=== PATIENT | female | born 1970 | race African-American/Black ===

== ENCOUNTER 2016-09-26 18:24 | Emergency (ER) | payer SELFPAY ==
[2016-09-26] MEDS ORDERED: Diazepam 5 MG TAB ONE (18:58)
[2016-09-26 19:10] LABS: #Eosinphils 0.2 thou/uL (0.0-0.7); #Lymphocytes 1.7 thou/uL (1.20-3.40); #Monocytes 0.4 thou/uL (0.11-0.59); #Neutrophils 1.8 thou/uL (1.40-6.50); %Basophils 1.2 % (0.0-1.0); %Eosinophils 5.5 % (0.0-10.0); %Lymphocytes 41.3 % (21.0-51.0); Hematocrit 28.5 % (36.0-47.0); Mean Platelet Volume 4.5 fL (7.4-10.4); Red Blood Cell (RBC) Count 3.86 mill/uL (4.20-5.40); White Blood Cell (WBC) Count 4.1 thou/uL (4.8-10.8)
[2016-09-26 19:19] LABS: ALT (SGPT) 9 U/L (0-55); AST (SGOT) 12 U/L (5-34); Alkaline Phosphatase 78 U/L (40-150); Anion Gap 13 mmol/L (10-20); BUN (Urea Nitrogen) 10 mg/dL (7.0-18.7); Bilirubin, Total 0.2 mg/dL (0.2-1.2); Calc. Creatinine Clearance 0 mL/min (70-130); Calcium 8.5 mg/dL (7.8-10.44); Carbon Dioxide 23 mmol/L (22-29); Chloride 110 mmol/L (98-107); Estimated GFR-MDRD 77; Globulin 3.2 g/dL (2.4-3.5); Protein, Total 6.8 g/dL (6.0-8.3)
[2016-09-26 19:24] LABS: Troponin I Less than 0.010 ng/mL (< 0.028)
[2016-09-26 19:27] LABS: Methamphetamine Not Detected (NotDetected)
[2016-09-26 19:28] LABS: Methadone Not Detected (NotDetected)
== END 2016-09-26 19:48 | disposition home or self-care (01) ==
LOC: NAV ERS 18:24
DX: F41.9 Anxiety disorder, unspecified (principal); F19.10 Other psychoactive substance abuse, uncomplicated; D64.9 Anemia, unspecified; F17.210 Nicotine dependence, cigarettes, uncomplicated
CPT/HCPCS: 80053; 80306; 82553; 84484; 85025; 93005

== ENCOUNTER 2016-10-19 01:42 | Emergency (ER) | payer SELFPAY ==
[2016-10-19 02:20] LABS: Acetaminophen Less than 3.0 mcg/mL (10.0-30.0); Salicylate Less than 5.0 mg/dL (15.0-30.0)
[2016-10-19 02:22] LABS: ALT (SGPT) 11 U/L (0-55); AST (SGOT) 15 U/L (5-34); Alkaline Phosphatase 75 U/L (40-150); Anion Gap 14 mmol/L (10-20); BUN (Urea Nitrogen) 19 mg/dL (7.0-18.7); Bilirubin, Total 0.2 mg/dL (0.2-1.2); Calc. Creatinine Clearance 0 mL/min (70-130); Calcium 8.6 mg/dL (7.8-10.44); Carbon Dioxide 21 mmol/L (22-29); Chloride 108 mmol/L (98-107); Estimated GFR-MDRD 86; Globulin 3.4 g/dL (2.4-3.5)
[2016-10-19] MEDS ORDERED: Sodium Chloride 0.9% 1,000 ML ONE (02:22)
[2016-10-19 02:31] LABS: #Basophils 0.2 thou/uL (0.0-0.2); #Eosinphils 0.1 thou/uL (0.0-0.7); #Lymphocytes 1.3 thou/uL (1.20-3.40); #Monocytes 0.8 thou/uL (0.11-0.59); #Neutrophils 5.8 thou/uL (1.40-6.50); %Basophils 2.3 % (0.0-1.0); %Eosinophils 1.4 % (0.0-10.0); %Lymphocytes 15.8 % (21.0-51.0); Hematocrit 24.4 % (36.0-47.0); Hypochromia MODERATE=16-30 cells (100X) (0-5/hpf); Mean Platelet Volume 4.7 fL (7.4-10.4); Microcytosis MARKED = >30 cells (100X) (0-5/hpf); Ovalocytes SLIGHT = 2-5 cells (100X) (0-1/hpf); Red Blood Cell (RBC) Count 3.44 mill/uL (4.20-5.40); White Blood Cell (WBC) Count 8.3 thou/uL (4.8-10.8)
[2016-10-19 02:33] LABS: Methadone Not Detected (NotDetected); Methamphetamine Not Detected (NotDetected)
[2016-10-19 03:08] LABS: Troponin I 0.011 ng/mL (< 0.028)
== END 2016-10-19 05:04 | disposition home or self-care (01) ==
LOC: NAV ERS 01:42
DX: F14.10 Cocaine abuse, uncomplicated (principal); F41.9 Anxiety disorder, unspecified; D50.9 Iron deficiency anemia, unspecified; F17.210 Nicotine dependence, cigarettes, uncomplicated
CPT/HCPCS: 51701; 80053; 80306; 80307; 81025; 82553; 84443; 84484; 85025; 93005; 96360; A4353; J7050

== ENCOUNTER 2016-11-13 22:01 | Emergency (ER) | payer SELFPAY ==
[2016-11-13] MEDS ORDERED: Dexamethasone 4 mg/ml Vial ONE (22:25)
== END 2016-11-13 23:01 | disposition home or self-care (01) ==
LOC: NAV ERS 22:01
DX: J02.9 Acute pharyngitis, unspecified (principal); F41.9 Anxiety disorder, unspecified; F17.210 Nicotine dependence, cigarettes, uncomplicated
CPT/HCPCS: 87081; 87430; 93005; 96372; J1100

== ENCOUNTER 2016-11-16 20:42 | Emergency (ER) | payer SELFPAY ==
[2016-11-16] MEDS ORDERED: diphenhydrAMINE HCl 50 MG/ML 1 ML VIAL ONE (21:12)
[2016-11-16 21:23] LABS: Cocaine Metabolite Screen Detected (NotDetected); Phencyclidine (PCP) Not Detected (NotDetected); THC/Cannabinoid Screen Detected (NotDetected)
[2016-11-16 21:24] LABS: Amphetamine Not Detected (NotDetected); Barbiturates Screen Not Detected (NotDetected); Benzodiazepine Screen Detected (NotDetected); Medtox Control Line Valid? VALID (VALID); Methadone Not Detected (NotDetected); Methamphetamine Not Detected (NotDetected); Opiate Screen Not Detected (NotDetected); Oxycodone Screen Not Detected (NotDetected); Tricyclic Screen Not Detected (NotDetected)
[2016-11-16] MEDS ORDERED: Amoxicillin/Potassium Clav 875 MG TAB ONE (21:45)
[2016-11-16] MEDS ORDERED: Lorazepam 2 MG/ML VIAL ONE (21:47)
== END 2016-11-16 22:24 | disposition home or self-care (01) ==
LOC: NAV ERS 20:42
DX: J02.9 Acute pharyngitis, unspecified (principal); F19.10 Other psychoactive substance abuse, uncomplicated; F41.9 Anxiety disorder, unspecified; F17.210 Nicotine dependence, cigarettes, uncomplicated
CPT/HCPCS: 80306; 85652; 86140; 87081; 87430; 96374; 96375; J1200; J2060

== ENCOUNTER 2016-12-09 12:20 | Emergency (ER) | payer SELFPAY ==
[~2016-12-09 12:20] MED LIST: Iopamidol 370 76% 100 ML VIAL ONE
[2016-12-09] MEDS ORDERED: Sodium Chloride 0.9% 1,000 ML ONE (12:32)
[2016-12-09] MEDS ORDERED: Fentanyl 100 MCG/2 ML VIAL ONE (12:32)
[2016-12-09] MEDS ORDERED: Ondansetron HCl/PF 4 MG/2 ML Vial ONE (12:32)
[2016-12-09] MEDS ORDERED: Famotidine/PF 20 mg/2ml Vial ONE (12:32)
[2016-12-09 13:02] LABS: Bilirubin Negative (Negative); Blood, Urine Negative (Negative); Clarity Clear (Clear); Glucose, Urine (Dipstick) Negative (Negative); Leukocyte Negative (Negative); Nitrite Negative (Negative); Protein, Urine (Dipstick) Negative (Neg-Trace); Urobilinogen 0.2 mg/dL (0.2-1.0); pH, Urine 5.5 (5.0-9.0)
[2016-12-09 13:04] LABS: #Basophils 0.1 thou/uL (0.0-0.2); #Lymphocytes 0.6 thou/uL (1.20-3.40); #Monocytes 0.5 thou/uL (0.11-0.59); #Neutrophils 8.8 thou/uL (1.40-6.50); %Basophils 0.5 % (0.0-1.0); %Eosinophils 0.4 % (0.0-10.0); %Lymphocytes 5.6 % (21.0-51.0); %Neutrophils 88.5 % (42.0-75.0); Hemoglobin 7.6 g/dL (12.0-16.0); Mean Corpuscular HGB CONC 29.4 g/dL (32.0-36.0); Mean Corpuscular Volume 68.1 fl (81.0-99.0); Mean Platelet Volume 5.6 fL (7.4-10.4); Platelet Count 503 thou/uL (130-400); RBC Distribution Width 17.6 % (11.5-14.5); Red Blood Cell (RBC) Count 3.79 mill/uL (4.20-5.40); Specific Gravity, Urine 1.026 (1.002-1.036); White Blood Cell (WBC) Count 9.9 thou/uL (4.8-10.8)
[2016-12-09 13:15] LABS: Amylase 80 U/L (25-125); Anion Gap 12 mmol/L (10-20); BUN (Urea Nitrogen) 17 mg/dL (7.0-18.7); Calc. Creatinine Clearance 0 mL/min (70-130); Carbon Dioxide 17 mmol/L (22-29); Chloride 110 mmol/L (98-107); Estimated GFR-MDRD Greater than 90; Glucose 94 mg/dL (70-105); Lipase 29 U/L (8-78); Potassium 4.4 mmol/L (3.5-5.1); Sodium 135 mmol/L (136-145)
[2016-12-09 13:18] LABS: CKMB 0.6 ng/mL (0-6.6); Troponin I 0.014 ng/mL (< 0.028)
--- NOTE | 2016-12-09 13:59 | CT ---
NONCONTRAST ENHANCED CT IMAGES OF ABDOMEN AND PELVIS: DATE: 12/09/16. HISTORY: Abdominal pain. History of fibroid tumor. Contrast-enhanced CT images of the abdomen and pelvis were obtained on 12/09/16. Comparison is made to a previous exam from 03/28/16. The lung bases are unremarkable. The liver and spleen are unremarkable. A hypodense area is noted in the liver, which is stable, most compatible with hepatic cysts. The pancreas is unremarkable. A drenal glands unremarkable. Cortical cyst is seen in the left kidney. A large mass is seen in the uterus. This was noted on the patient's previous CT and is unchanged. Some cystic area is also see n in the right and left adnexal regions. No evidence of hydronephrosis is seen. IMPRESSION: Large uterine area of heterogeneity most compatible with numerous uterine fibroids. Right adnexal a nd possible left adnexal masses also present also noted on the patient's previous exam. Gynecologic consultation and evaluation recommended. Incidentally noted small hiatal hernia also seen. POS: [facility]
== END 2016-12-09 14:14 | disposition home or self-care (01) ==
LOC: NAV ERS 12:20
DX: R10.13 Epigastric pain (principal); R11.2 Nausea with vomiting, unspecified; D25.9 Leiomyoma of uterus, unspecified; F41.9 Anxiety disorder, unspecified; F17.210 Nicotine dependence, cigarettes, uncomplicated; Z79.899 Other long term (current) drug therapy
CPT/HCPCS: 74177; 80048; 81003; 82150; 82553; 83690; 84484; 85025; 93005; J2405; J3010; J7050; S0028

== ENCOUNTER 2017-01-20 09:44 | Emergency (ER) | payer SELFPAY ==
[2017-01-20] MEDS ORDERED: Lorazepam 2 MG/ML VIAL ONE (09:57)
== END 2017-01-20 10:35 | disposition home or self-care (01) ==
LOC: NAV ERS 09:44
DX: F14.10 Cocaine abuse, uncomplicated (principal); F41.9 Anxiety disorder, unspecified; Z79.899 Other long term (current) drug therapy
CPT/HCPCS: 96372; J2060

== ENCOUNTER 2017-02-07 14:59 | Emergency (ER) | payer SELFPAY ==
[2017-02-07] MEDS ORDERED: Lorazepam 2 MG/ML VIAL ONE (15:12)
[2017-02-07] MEDS ORDERED: Famotidine 20 MG TAB ONE (15:13)
[2017-02-07] MEDS ORDERED: Ondansetron ODT 4 MG TAB ONE (15:13)
[2017-02-07 15:49] LABS: #Eosinphils 0.1 thou/uL (0.0-0.7); #Lymphocytes 1.6 thou/uL (1.20-3.40); #Monocytes 0.6 thou/uL (0.11-0.59); %Basophils 0.9 % (0.0-1.0); %Eosinophils 2.7 % (0.0-10.0); %Lymphocytes 36.3 % (21.0-51.0); %Neutrophils 46.1 % (42.0-75.0); Hemoglobin 7.2 g/dL (12.0-16.0); Mean Corpuscular HGB CONC 28.8 g/dL (32.0-36.0); Mean Corpuscular Hemoglobin 19.1 pg (27.0-31.0); Mean Corpuscular Volume 66.6 fl (81.0-99.0); Mean Platelet Volume 4.8 fL (7.4-10.4); Platelet Count 490 thou/uL (130-400); RBC Distribution Width 17.1 % (11.5-14.5); Red Blood Cell (RBC) Count 3.75 mill/uL (4.20-5.40); White Blood Cell (WBC) Count 4.3 thou/uL (4.8-10.8)
[2017-02-07 16:00] LABS: Acetaminophen Less than 6.0 mcg/mL (10.0-30.0); Alcohol Less than 10 mg/dL (Less than 10); Anion Gap 14 mmol/L (10-20); BUN (Urea Nitrogen) 9 mg/dL (7.0-18.7); Calc. Creatinine Clearance 0 mL/min (70-130); Calcium 8.7 mg/dL (7.8-10.44); Carbon Dioxide 20 mmol/L (22-29); Chloride 107 mmol/L (98-107); Estimated GFR-MDRD Greater than 90; Glucose 93 mg/dL (70-105); Potassium 3.7 mmol/L (3.5-5.1); Salicylate Less than 8.0 mg/dL (15.0-30.0); Sodium 137 mmol/L (136-145)
[2017-02-07 16:03] LABS: Hypochromia MODERATE=16-30 cells (100X) (0-5/hpf); MDiff Complete? YES; Microcytosis MODERATE=15-30 cells (100X) (0-5/hpf); PLT Morphology Comment Appears Adequate; Polychromasia SLIGHT = 2-3 cells (100X) (0-2/hpf)
[2017-02-07 16:16] LABS: Bilirubin Negative (Negative); Blood, Urine Trace (Negative); Clarity Clear (Clear); Glucose, Urine (Dipstick) Negative (Negative); Leukocyte Negative (Negative); Nitrite Negative (Negative); Protein, Urine (Dipstick) Negative (Neg-Trace); Specific Gravity, Urine 1.025 (1.005-1.030); pH, Urine 6.5 (5.0-9.0)
[2017-02-07 16:24] LABS: Bacteria/HPF None Seen HPF (None Seen); RBC/HPF 0-3 HPF (0-3); WBC/HPF None Seen HPF (0-3)
[2017-02-07 16:32] LABS: Amphetamine Not Detected (NotDetected); Barbiturates Screen Not Detected (NotDetected); Benzodiazepine Screen Detected (NotDetected); Cocaine Metabolite Screen Detected (NotDetected); Medtox Control Line Valid? VALID (VALID); Methadone Not Detected (NotDetected); Methamphetamine Not Detected (NotDetected); Opiate Screen Detected (NotDetected); Oxycodone Screen Not Detected (NotDetected); Phencyclidine (PCP) Not Detected (NotDetected); THC/Cannabinoid Screen Detected (NotDetected); Tricyclic Screen Not Detected (NotDetected)
== END 2017-02-07 16:27 | disposition home or self-care (01) ==
LOC: NAV ERS 14:59
DX: F14.10 Cocaine abuse, uncomplicated (principal); R10.9 Unspecified abdominal pain; D53.9 Nutritional anemia, unspecified; F41.9 Anxiety disorder, unspecified
CPT/HCPCS: 36415; 80048; 80306; 80307; 81003; 81015; 85025; 96372; J2060; Q0162

== ENCOUNTER 2017-02-11 15:31 | Emergency (ER) | payer SELFPAY ==
[2017-02-11] MEDS ORDERED: Lorazepam 2 MG/ML VIAL ONE (15:47)
== END 2017-02-11 16:00 | disposition home or self-care (01) ==
LOC: NAV ERS 15:31
DX: F41.9 Anxiety disorder, unspecified (principal); F14.10 Cocaine abuse, uncomplicated; D50.9 Iron deficiency anemia, unspecified; F17.210 Nicotine dependence, cigarettes, uncomplicated; Z79.899 Other long term (current) drug therapy
CPT/HCPCS: 96372; J2060

== ENCOUNTER 2017-02-12 19:30 | Emergency (ER) | payer SELFPAY ==
[2017-02-12 20:25] LABS: Pregnancy Test - Urine (BHCG) Negative (NEGATIVE); Pregu Control Background? CLEAR/WHITE (CLR/WHITE); Pregu Control Bar Appear? YES (CONTROL BAR); Specific Gravity 1.024 (1.002-1.036)
[2017-02-12 20:49] LABS: Hemoglobin 7.2 g/dL (12.0-16.0); Mean Corpuscular Hemoglobin 19.2 pg (27.0-31.0); Mean Corpuscular Volume 66.1 fl (81.0-99.0); Mean Platelet Volume 4.9 fL (7.4-10.4); Platelet Count 492 thou/uL (130-400); RBC Distribution Width 17.2 % (11.5-14.5); Red Blood Cell (RBC) Count 3.76 mill/uL (4.20-5.40); White Blood Cell (WBC) Count 7.5 thou/uL (4.8-10.8)
[2017-02-12 20:52] LABS: Blood, Urine Large (Negative); Clarity Clear (Clear); Glucose, Urine (Dipstick) Negative (Negative); Leukocyte Trace (Negative); Nitrite Negative (Negative); Protein, Urine (Dipstick) 100 mg/dL (Neg-Trace); pH, Urine 5.5 (5.0-9.0)
[2017-02-12 20:58] LABS: ALT (SGPT) 9 U/L (8-55); AST (SGOT) 15 U/L (5-34); Albumin 3.8 g/dL (3.5-5.0); Alkaline Phosphatase 69 U/L (40-150); Anion Gap 13 mmol/L (10-20); BUN (Urea Nitrogen) 18 mg/dL (7.0-18.7); Bilirubin, Total 0.1 mg/dL (0.2-1.2); Calc. Creatinine Clearance 0 mL/min (70-130); Calcium 8.8 mg/dL (7.8-10.44); Carbon Dioxide 22 mmol/L (22-29); Chloride 108 mmol/L (98-107); Estimated GFR-MDRD 89; Globulin 3.3 g/dL (2.4-3.5); Glucose 89 mg/dL (70-105); Potassium 4.1 mmol/L (3.5-5.1); Protein, Total 7.1 g/dL (6.0-8.3); Sodium 139 mmol/L (136-145)
[2017-02-12 21:00] LABS: Band 2 % (5-11); Burr Cells SLIGHT = 2-5 cells (100X) (0-1/hpf); Eosinophils 1 % (0-10); Hypochromia MODERATE=16-30 cells (100X) (0-5/hpf); Lymphocytes 29 % (21-51); MDiff Complete? YES; Microcytosis MODERATE=15-30 cells (100X) (0-5/hpf); Monocytes 4 % (0-10); Neutrophil 63 % (42-75); PLT Morphology Comment Appears Increased; Poikilocytosis SLIGHT = 6-15 cells (100X) (0-5/hpf); Tear Drops SLIGHT = 2-5 cells (100X) (0-1/hpf)
[2017-02-12 21:03] LABS: Bilirubin Negative (Negative); Icto Negative (Negative)
[2017-02-12 21:04] LABS: RBC/HPF GREATER THAN 50-TNTC HPF (0-3); Specific Gravity, Urine Greater/Equal 1.030 (1.005-1.030); Troponin I Less than 0.010 ng/mL (< 0.028); WBC/HPF 0-3 HPF (0-3)
[2017-02-12 21:08] LABS: Bacteria/HPF Rare-Few HPF (None Seen)
== END 2017-02-12 21:30 | disposition home or self-care (01) ==
LOC: NAV ERS 19:30
DX: N93.8 Other specified abnormal uterine and vaginal bleeding (principal); D64.9 Anemia, unspecified; F41.9 Anxiety disorder, unspecified; F17.210 Nicotine dependence, cigarettes, uncomplicated; Z79.899 Other long term (current) drug therapy
CPT/HCPCS: 36415; 80053; 81003; 81015; 81025; 84484; 85025; 93005

== ENCOUNTER 2017-02-26 17:35 | Emergency (ER) | payer SELFPAY ==
[2017-02-26] MEDS ORDERED: Lorazepam 2 MG/ML VIAL ONE (17:58)
== END 2017-02-26 18:11 | disposition home or self-care (01) ==
LOC: NAV ERS 17:35
DX: F41.9 Anxiety disorder, unspecified (principal); F14.10 Cocaine abuse, uncomplicated; Z79.899 Other long term (current) drug therapy
CPT/HCPCS: 96372; J2060

== ENCOUNTER 2017-04-28 07:47 | Emergency (ER) | payer SELFPAY ==
[2017-04-28] MEDS ORDERED: Lorazepam 2 MG/ML VIAL ONE (08:39)
[2017-04-28 08:58] LABS: Amphetamine Not Detected (NotDetected); Barbiturates Screen Not Detected (NotDetected); Benzodiazepine Screen Detected (NotDetected); Cocaine Metabolite Screen Detected (NotDetected); Medtox Control Line Valid? VALID (VALID); Methadone Not Detected (NotDetected); Methamphetamine Not Detected (NotDetected); Opiate Screen Not Detected (NotDetected); Oxycodone Screen Not Detected (NotDetected); Phencyclidine (PCP) Not Detected (NotDetected); THC/Cannabinoid Screen Detected (NotDetected); Tricyclic Screen Not Detected (NotDetected)
[2017-04-28 09:11] LABS: ALT (SGPT) 8 U/L (8-55); AST (SGOT) 13 U/L (5-34); Albumin 3.9 g/dL (3.5-5.0); Alkaline Phosphatase 71 U/L (40-150); Anion Gap 13 mmol/L (10-20); BUN (Urea Nitrogen) 11 mg/dL (7.0-18.7); Bilirubin, Total 0.3 mg/dL (0.2-1.2); Calc. Creatinine Clearance 0 mL/min (70-130); Calcium 8.9 mg/dL (7.8-10.44); Carbon Dioxide 20 mmol/L (22-29); Chloride 106 mmol/L (98-107); Estimated GFR-MDRD Greater than 90; Globulin 3.6 g/dL (2.4-3.5); Glucose 99 mg/dL (70-105); Potassium 3.6 mmol/L (3.5-5.1); Protein, Total 7.5 g/dL (6.0-8.3); Sodium 135 mmol/L (136-145)
[2017-04-28 09:13] LABS: CKMB 1.1 ng/mL (0-6.6); Troponin I 0.018 ng/mL (< 0.028)
== END 2017-04-28 10:00 | disposition home or self-care (01) ==
LOC: NAV ERS 07:47
DX: F41.9 Anxiety disorder, unspecified (principal); F19.10 Other psychoactive substance abuse, uncomplicated; F17.210 Nicotine dependence, cigarettes, uncomplicated; R19.00 Intra-abdominal and pelvic swelling, mass and lump, unspecified site
CPT/HCPCS: 80053; 80306; 82553; 84484; 93005; 96372; J2060

== ENCOUNTER 2017-05-09 10:43 | Emergency (ER) | payer SELFPAY ==
[2017-05-09 11:53] LABS: Bilirubin Negative (Negative); Blood, Urine Trace (Negative); Clarity Clear (Clear); Glucose, Urine (Dipstick) Negative (Negative); Leukocyte Trace (Negative); Nitrite Negative (Negative); Pregnancy Test - Urine (BHCG) Negative (Negative); Protein, Urine (Dipstick) Negative (Neg-Trace); Urobilinogen 0.2 mg/dL (0.2-1.0)
[2017-05-09 11:54] LABS: Pregu Control Background? CLEAR/WHITE (CLR/WHITE); Pregu Control Bar Appear? YES (CONTROL BAR); Specific Gravity 1.007 (1.002-1.036); Specific Gravity, Urine 1.007 (1.002-1.036)
[2017-05-09 11:56] LABS: Bacteria/HPF Rare-Few HPF (None Seen); RBC/HPF 0-3 HPF (0-3); WBC/HPF 0-3 HPF (0-3)
[2017-05-09 12:14] LABS: Anion Gap 11 mmol/L (10-20); BUN (Urea Nitrogen) 11 mg/dL (7.0-18.7); Calc. Creatinine Clearance 0 mL/min (70-130); Carbon Dioxide 24 mmol/L (22-29); Chloride 106 mmol/L (98-107); Estimated GFR-MDRD 89; Glucose 98 mg/dL (70-105); Potassium 3.9 mmol/L (3.5-5.1); Sodium 137 mmol/L (136-145)
--- NOTE | 2017-05-09 12:16 | RAD ---
PA AND LATERAL VIEWS OF CHEST: Date: 05/09/17 HISTORY: Cough. FINDINGS: The heart size is normal. The lungs are well expanded without focal areas of consolidation, pneumoth orax, or pleural effusions. There are mild degenerative changes of the spine. IMPRESSION: No radiographic evidence of acute cardiopulmonary process. POS: [facility]
[2017-05-09 12:28] LABS: #Eosinphils 0.1 thou/uL (0.0-0.7); #Lymphocytes 1.4 thou/uL (1.20-3.40); #Monocytes 0.5 thou/uL (0.11-0.59); #Neutrophils 3.4 thou/uL (1.40-6.50); %Basophils 0.9 % (0.0-1.0); %Eosinophils 1.1 % (0.0-10.0); %Lymphocytes 26.3 % (21.0-51.0); %Monocytes 8.8 % (0.0-10.0); Hemoglobin 6.6 g/dL (12.0-16.0); Hypochromia MODERATE=16-30 cells (100X) (0-5/hpf); MDiff Complete? YES; Mean Corpuscular HGB CONC 28.5 g/dL (32.0-36.0); Mean Corpuscular Hemoglobin 18.7 pg (27.0-31.0); Mean Corpuscular Volume 65.8 fl (81.0-99.0); Mean Platelet Volume 4.6 fL (7.4-10.4); Microcytosis MODERATE=15-30 cells (100X) (0-5/hpf); Platelet Count 637 thou/uL (130-400); RBC Distribution Width 17.4 % (11.5-14.5); Red Blood Cell (RBC) Count 3.55 mill/uL (4.20-5.40); Stomatocytes SLIGHT = 2-5 cells (100X) (0-1/hpf); White Blood Cell (WBC) Count 5.5 thou/uL (4.8-10.8)
[2017-05-09] MEDS ORDERED: Sodium Chloride 0.9% 500 ML ONE (13:24)
[2017-05-10 17:35] LABS: Iron 13 ug/dL (50-170); Iron Binding Capacity, Total 449 mcg/dL (265-497)
== END 2017-05-09 16:24 | disposition home or self-care (01) ==
LOC: NAV ERS 10:43
DX: D64.9 Anemia, unspecified (principal); F14.10 Cocaine abuse, uncomplicated; F17.210 Nicotine dependence, cigarettes, uncomplicated; F41.9 Anxiety disorder, unspecified; Z79.899 Other long term (current) drug therapy
CPT/HCPCS: 36415; 36430; 71020; 80048; 81003; 81015; 81025; 82728; 83540; 83550; 85025; 86850; 86900; 86901; 93005; J7050; P9016

== ENCOUNTER 2017-05-26 18:54 | Emergency (ER) | payer SELFPAY ==
[2017-05-26] MEDS ORDERED: Lorazepam 2 MG/ML VIAL ONE (19:12)
== END 2017-05-26 19:41 | disposition home or self-care (01) ==
LOC: NAV ERS 18:54
DX: F41.9 Anxiety disorder, unspecified (principal); F14.10 Cocaine abuse, uncomplicated; F17.210 Nicotine dependence, cigarettes, uncomplicated; Z79.899 Other long term (current) drug therapy
CPT/HCPCS: 96372; J2060

== ENCOUNTER 2017-08-10 04:18 | Emergency (ER) | payer SELFPAY ==
[2017-08-10] MEDS ORDERED: Sodium Chloride 0.9% 1,000 ML ONE (04:32)
[2017-08-10] MEDS ORDERED: Lorazepam 2 MG/ML VIAL ONE (04:32)
[2017-08-10 05:09] LABS: #Basophils 0.1 thou/uL (0.0-0.2); #Lymphocytes 1.3 thou/uL (1.20-3.40); #Monocytes 0.6 thou/uL (0.11-0.59); #Neutrophils 4.3 thou/uL (1.40-6.50); %Basophils 1.3 % (0.0-1.0); %Eosinophils 0.6 % (0.0-10.0); %Lymphocytes 20.9 % (21.0-51.0); %Monocytes 8.9 % (0.0-10.0); %Neutrophils 68.3 % (42.0-75.0); Hypochromia MODERATE=16-30 cells (100X) (0-5/hpf); MDiff Complete? YES; Mean Corpuscular Hemoglobin 19.8 pg (27.0-31.0); Mean Corpuscular Volume 68.5 fl (81.0-99.0); Mean Platelet Volume 5.9 fL (7.4-10.4); Microcytosis MODERATE=15-30 cells (100X) (0-5/hpf); Ovalocytes SLIGHT = 2-5 cells (100X) (0-1/hpf); PLT Morphology Comment Appears Adequate; Platelet Count 528 thou/uL (130-400); RBC Distribution Width 17.5 % (11.5-14.5); Red Blood Cell (RBC) Count 4.02 mill/uL (4.20-5.40); White Blood Cell (WBC) Count 6.3 thou/uL (4.8-10.8)
[2017-08-10 05:12] LABS: ALT (SGPT) 9 U/L (8-55); AST (SGOT) 17 U/L (5-34); Albumin 4.1 g/dL (3.5-5.0); Alkaline Phosphatase 68 U/L (40-150); Anion Gap 13 mmol/L (10-20); BUN (Urea Nitrogen) 14 mg/dL (7.0-18.7); Bilirubin, Total 0.4 mg/dL (0.2-1.2); CK (CPK) 93 U/L (29-168); Calc. Creatinine Clearance 0 mL/min (70-130); Calcium 9.3 mg/dL (7.8-10.44); Carbon Dioxide 19 mmol/L (22-29); Chloride 105 mmol/L (98-107); Estimated GFR-MDRD Greater than 90; Globulin 3.7 g/dL (2.4-3.5); Glucose 90 mg/dL (70-105); Potassium 3.8 mmol/L (3.5-5.1); Protein, Total 7.8 g/dL (6.0-8.3); Sodium 133 mmol/L (136-145)
[2017-08-10 05:13] LABS: CKMB 1.3 ng/mL (0-6.6); Troponin I Less than 0.010 ng/mL (< 0.028)
== END 2017-08-10 07:30 | disposition home or self-care (01) ==
LOC: NAV ERS 04:18
DX: F14.10 Cocaine abuse, uncomplicated (principal); F41.9 Anxiety disorder, unspecified; F17.210 Nicotine dependence, cigarettes, uncomplicated
CPT/HCPCS: 80053; 82550; 82553; 84484; 85025; 93005; 96361; 96374; J2060; J7050

== ENCOUNTER 2017-08-17 17:00 | Emergency (ER) | payer SELFPAY ==
[2017-08-17] MEDS ORDERED: Acetaminophen 500 MG TAB ONE (17:14)
== END 2017-08-17 18:33 | disposition home or self-care (01) ==
LOC: NAV ERS 17:00
DX: F14.10 Cocaine abuse, uncomplicated (principal); B34.9 Viral infection, unspecified; F41.9 Anxiety disorder, unspecified; F17.210 Nicotine dependence, cigarettes, uncomplicated; Z79.899 Other long term (current) drug therapy
CPT/HCPCS: 99283

== ENCOUNTER 2018-02-09 05:55 | Observation (INO) | payer SELFPAY ==
[2018-02-09] MEDS ORDERED: Lorazepam 2 MG/ML VIAL ONE (06:20)
[2018-02-09 06:44] LABS: ALT (SGPT) 9 U/L (8-55); AST (SGOT) 19 U/L (5-34); Albumin 3.9 g/dL (3.5-5.0); Alkaline Phosphatase 57 U/L (40-150); Anion Gap 14 mmol/L (10-20); BUN (Urea Nitrogen) 25 mg/dL (7.0-18.7); Bilirubin, Total 0.2 mg/dL (0.2-1.2); Calc. Creatinine Clearance 0 mL/min (70-130); Calcium 9.8 mg/dL (7.8-10.44); Carbon Dioxide 19 mmol/L (22-29); Chloride 107 mmol/L (98-107); Estimated GFR-MDRD 73; Globulin 3.3 g/dL (2.4-3.5); Glucose 83 mg/dL (70-105); Potassium 3.7 mmol/L (3.5-5.1); Protein, Total 7.2 g/dL (6.0-8.3); Sodium 136 mmol/L (136-145)
[2018-02-09 06:48] LABS: Band 10 % (5-11); Eosinophils 1 % (0-10); Hemoglobin 6.3 g/dL (12.0-16.0); Hypochromia MARKED = >30 cells (100X) (0-5/hpf); Lymphocytes 38 % (21-51); MDiff Complete? YES; Mean Corpuscular HGB CONC 28.5 g/dL (32.0-36.0); Mean Corpuscular Hemoglobin 18.4 pg (27.0-31.0); Mean Corpuscular Volume 64.5 fL (78.0-98.0); Mean Platelet Volume 5.1 fL (7.4-10.4); Microcytosis MARKED = >30 cells (100X) (0-5/hpf); Monocytes 5 % (0-10); Neutrophil 46 % (42-75); PLT Morphology Comment Appears Increased; Platelet Count 625 thou/uL (130-400); RBC Distribution Width 16.5 % (11.5-14.5); Red Blood Cell (RBC) Count 3.44 mill/uL (4.20-5.40); White Blood Cell (WBC) Count 5.9 thou/uL (4.8-10.8)
[2018-02-09] MEDS ORDERED: Lorazepam 1 MG TAB ONE (07:46)
--- NOTE | 2018-02-09 08:01 | RAD ---
NECK FOR SOFT TISSUES 2 VIEWS: Date: 02/09/18 HISTORY: Shortness of breath. Assess for foreign body. FINDINGS: Hypopharynx appears unremarkable. The epiglottis appears normal. No radiopaque foreign body identifie d within the airway. IMPRESSION: Unremarkable exam. POS: [facility]
--- NOTE | 2018-02-09 08:29 | RAD ---
2 VIEW CHEST: Date: 02/09/18 HISTORY: Dyspnea. FINDINGS: Lungs are clear. Heart is upper normal size, but stable from exam of 05/09/17. Vascular markings norm al. IMPRESSION: No acute finding or interval change. POS: [facility]
[2018-02-09 08:40] VITALS: BMI 22.8
[2018-02-09] MEDS ORDERED: Acetaminophen 325 MG TAB PO PRN (08:41)
[2018-02-09] MEDS ORDERED: Sodium Chloride 0.9% 1,000 ML IV SCH (08:45)
[2018-02-09] MEDS ORDERED: Famotidine 20 MG TAB PO SCH (09:00)
[2018-02-09] MEDS ORDERED: diphenhydrAMINE 50 MG/ML VIAL IVP PRN ×2 (09:29→09:30)
[2018-02-09 16:02] VITALS: BP 123/66; TEMP 97.5
[2018-02-09 18:05] LABS: #Lymphocytes 0.9 thou/uL (1.20-3.40); #Monocytes 0.2 thou/uL (0.11-0.59); #Neutrophils 4.4 thou/uL (1.40-6.50); %Basophils 0.6 % (0.0-1.0); %Lymphocytes 16.5 % (21.0-51.0); %Monocytes 3.3 % (0.0-10.0); %Neutrophils 79.6 % (42.0-75.0); Hemoglobin 9.9 g/dL (12.0-16.0); Mean Corpuscular HGB CONC 29.7 g/dL (32.0-36.0); Mean Corpuscular Hemoglobin 20.9 pg (27.0-31.0); Mean Corpuscular Volume 70.5 fL (78.0-98.0); Mean Platelet Volume 5.2 fL (7.4-10.4); Platelet Count 617 thou/uL (130-400); RBC Distribution Width 20.9 % (11.5-14.5); Red Blood Cell (RBC) Count 4.73 mill/uL (4.20-5.40); White Blood Cell (WBC) Count 5.6 thou/uL (4.8-10.8)
[2018-02-09 18:15] LABS: Anisocytosis MODERATE=16-30 cells (100X) (0-5/hpf); Hypochromia MODERATE=16-30 cells (100X) (0-5/hpf); MDiff Complete? YES; Microcytosis MODERATE=15-30 cells (100X) (0-5/hpf); PLT Morphology Comment Appears Increased
== END 2018-02-09 18:28 | disposition home or self-care (01) ==
LOC: NAV ERS 05:55 → NAV ACUTE 08:01
PROVIDERS: ADMIT Internal Medicine; ATTEND Internal Medicine
DX: D64.9 Anemia, unspecified (principal); F43.22 Adjustment disorder with anxiety; F17.210 Nicotine dependence, cigarettes, uncomplicated; F14.10 Cocaine abuse, uncomplicated; F12.10 Cannabis abuse, uncomplicated; Z79.899 Other long term (current) drug therapy; Z88.5 Allergy status to narcotic agent
CPT/HCPCS: 36415; 36430; 70360; 71046; 80053; 85025; 86850; 86900; 86901; 96374; 96375; G0378; J2060; J2920; P9016

== ENCOUNTER 2018-11-09 11:11 | Emergency (ER) | payer SELFPAY | END 2018-11-09 11:36 | disposition home or self-care (01) | LOC: NAV ERS 11:11 | DX: B34.9 Viral infection, unspecified (principal); F41.9 Anxiety disorder, unspecified; F17.210 Nicotine dependence, cigarettes, uncomplicated | CPT/HCPCS: 99281 ==

== ENCOUNTER 2019-01-30 10:48 | Emergency (ER) | payer SELFPAY ==
[2019-01-30] MEDS ORDERED: Acetaminophen 325 MG TAB ONE (11:08)
--- NOTE | 2019-01-30 12:41 | RAD ---
SINGLE VIEW OF THE CHEST AND LEFT RIB SERIES: HISTORY: Left chest and rib pain. FINDINGS: A single view of the chest and 2 views of the left ribs show no evidence of displaced left rib fractu re. No underlying pleural thickening or pneumothorax are seen. The heart is normal in size. There is no evidence of consolidation, mass, or pleural effusion. IMPRESSION: Unremarkable exam. POS: [facility]
== END 2019-01-30 13:07 | disposition home or self-care (01) ==
LOC: NAV ERS 10:48
DX: S02.5XXA Fracture of tooth (traumatic), initial encounter for closed fracture (principal); S20.212A Contusion of left front wall of thorax, initial encounter; S00.83XA Contusion of other part of head, initial encounter; F41.9 Anxiety disorder, unspecified; F17.210 Nicotine dependence, cigarettes, uncomplicated; Y04.0XXA Assault by unarmed brawl or fight, initial encounter
CPT/HCPCS: 94799

== ENCOUNTER 2019-02-01 08:22 | Emergency (ER) | payer SELFPAY ==
[2019-02-01] MEDS ORDERED: Acetaminophen/Codeine 30-300mg Tablet ONE (08:39)
--- NOTE | 2019-02-01 09:12 | RAD ---
EXAM: XR Ribs Lt>=2 View W/PA CXR PROVIDED CLINICAL HISTORY: Chest pain status post injury COMPARISON: 01/30/2019 FINDINGS: Cardiac silhouette appears prominent. No focal consolidation, pleural fluid or pneumothorax apparent. No evidence for displaced left-sided rib fracture. IMPRESSION: No evidence for an acute process.
== END 2019-02-01 09:32 | disposition home or self-care (01) ==
LOC: NAV ERS 08:22
DX: S20.212A Contusion of left front wall of thorax, initial encounter (principal); F17.210 Nicotine dependence, cigarettes, uncomplicated; F41.9 Anxiety disorder, unspecified; Y04.0XXA Assault by unarmed brawl or fight, initial encounter

== ENCOUNTER 2019-02-08 21:07 | Emergency (ER) | payer SELFPAY ==
[2019-02-08] MEDS ORDERED: Ondansetron ODT 4 MG TAB ONE (21:21)
== END 2019-02-08 21:43 | disposition home or self-care (01) ==
LOC: NAV ERS 21:07
DX: R07.89 Other chest pain (principal); F41.9 Anxiety disorder, unspecified; F17.210 Nicotine dependence, cigarettes, uncomplicated
CPT/HCPCS: 99283; Q0162

== ENCOUNTER 2019-08-14 23:03 | Emergency (ER) | payer SELFPAY ==
[2019-08-14 23:56] LABS: Wet Prep Clue Cells Clue Cells PRESENT (None Seen); Wet Prep Trichomonas Trichomonas PRESENT (None Seen)
[2019-08-14 23:57] LABS: Wet Prep Spermatozoa 2nd Revie Agree with result (None Seen)
[2019-08-15] MEDS ORDERED: metroNIDAZOLE 500 MG TAB ONE (00:01)
[2019-08-19 00:55] LABS: Chlamydia by PCR Not Detected (NotDetected); GC by PCR Not Detected (NotDetected)
== END 2019-08-15 00:06 | disposition home or self-care (01) ==
LOC: NAV ERS 23:03
DX: A59.01 Trichomonal vulvovaginitis (principal); F41.9 Anxiety disorder, unspecified; F17.210 Nicotine dependence, cigarettes, uncomplicated
CPT/HCPCS: 87210; 87491; 87591; 99283

== ENCOUNTER 2021-04-15 09:22 | Emergency (ER) | payer SELFPAY | END 2021-04-15 10:09 | disposition home or self-care (01) | LOC: NAV ERS 09:22 | DX: S90.861A Insect bite (nonvenomous), right foot, initial encounter (principal); F17.210 Nicotine dependence, cigarettes, uncomplicated; W57.XXXA Bitten or stung by nonvenomous insect and other nonvenomous arthropods, initial encounter | CPT/HCPCS: 99282 ==

== ENCOUNTER 2021-06-25 14:27 | Emergency (ER) | payer SELFPAY | END 2021-06-25 15:08 | disposition home or self-care (01) | LOC: NAV ERS 14:27 | DX: F41.9 Anxiety disorder, unspecified (principal); F17.210 Nicotine dependence, cigarettes, uncomplicated | CPT/HCPCS: 99283 ==

== ENCOUNTER 2021-08-11 10:13 | Emergency (ER) | payer SELFPAY | END 2021-08-11 11:45 | disposition home or self-care (01) | LOC: NAV ERS 10:13 | DX: N93.9 Abnormal uterine and vaginal bleeding, unspecified (principal); F17.210 Nicotine dependence, cigarettes, uncomplicated | CPT/HCPCS: 99283 ==

== ENCOUNTER 2021-08-27 04:34 | Emergency (ER) | payer SELFPAY | END 2021-08-27 05:05 | disposition home or self-care (01) | LOC: NAV ERS 04:34 | DX: H61.23 Impacted cerumen, bilateral (principal); F17.210 Nicotine dependence, cigarettes, uncomplicated | CPT/HCPCS: 99281 ==

== ENCOUNTER 2021-10-11 03:06 | Emergency (ER) | payer SELFPAY | END 2021-10-11 03:41 | disposition home or self-care (01) | LOC: NAV ERS 03:06 | DX: F41.9 Anxiety disorder, unspecified (principal); F14.10 Cocaine abuse, uncomplicated; F17.210 Nicotine dependence, cigarettes, uncomplicated; D25.9 Leiomyoma of uterus, unspecified | CPT/HCPCS: 99282 ==

== ENCOUNTER 2021-10-28 06:07 | Emergency (ER) | payer SELFPAY ==
[2021-10-28] MEDS ORDERED: Hydrocortisone Sod Succ/PF 100 mg/2 ml Vial ONE (06:38)
[2021-10-28] MEDS ORDERED: guaiFENesin ER 600 MG TAB ONE (06:38)
[2021-10-28] MEDS ORDERED: Acetaminophen 500 MG TAB ONE (06:40)
[2021-10-28 22:35] LABS: SARS-CoV-2 PCR by NAA Not Detected (NotDetected)
== END 2021-10-28 07:25 | disposition home or self-care (01) ==
LOC: NAV ERS 06:07
DX: S80.861A Insect bite (nonvenomous), right lower leg, initial encounter (principal); J10.1 Influenza due to other identified influenza virus with other respiratory manifestations; F17.210 Nicotine dependence, cigarettes, uncomplicated; W57.XXXA Bitten or stung by nonvenomous insect and other nonvenomous arthropods, initial encounter; Z20.822 Contact with and (suspected) exposure to COVID-19
CPT/HCPCS: 87804; 99283; J1720; U0003; U0005

== ENCOUNTER 2022-04-01 07:30 | Emergency (ER) | payer BC, SELFPAY ==
[2022-04-01] MEDS ORDERED: Promethazine HCl 25 MG/ML VIAL ONE (08:49)
[2022-04-01] MEDS ORDERED: Sodium Chloride 0.9% 100 ML ONE (08:49)
== END 2022-04-01 08:34 | disposition home or self-care (01) ==
LOC: NAV ERS 07:30
DX: M25.512 Pain in left shoulder (principal)
CPT/HCPCS: 93005; J2550

== ENCOUNTER 2022-07-17 16:02 | Emergency (ER) | payer BC | END 2022-07-17 18:10 | disposition left against medical advice (07) | LOC: NAV ERS 16:02 | DX: Z53.21 Procedure and treatment not carried out due to patient leaving prior to being seen by health care provider (principal) ==

== ENCOUNTER 2022-10-08 09:00 | Emergency (ER) | payer BC ==
[2022-10-08] MEDS ORDERED: Acetaminophen 500 MG TAB ONE (10:13)
[2022-10-08] MEDS ORDERED: Loratadine 10 MG TAB ONE (10:13)
== END 2022-10-08 11:10 | disposition home or self-care (01) ==
LOC: NAV ERS 09:00
DX: J02.9 Acute pharyngitis, unspecified (principal); J30.9 Allergic rhinitis, unspecified; I10 Essential (primary) hypertension; H65.91 Unspecified nonsuppurative otitis media, right ear; Z20.822 Contact with and (suspected) exposure to COVID-19
CPT/HCPCS: 87081; 87430; 99283; U0003; U0005

== ENCOUNTER 2023-02-26 08:42 | Emergency (ER) | payer OTHER ==
[2023-02-26] MEDS ORDERED: Acetaminophen 325 MG TAB ONE (09:23)
== END 2023-02-26 09:28 | disposition home or self-care (01) ==
LOC: NAV ERS 08:42
DX: K04.4 Acute apical periodontitis of pulpal origin (principal); I10 Essential (primary) hypertension; F17.210 Nicotine dependence, cigarettes, uncomplicated
CPT/HCPCS: 99282

== ENCOUNTER 2023-05-15 12:59 | Emergency (ER) | payer OTHER, SELFPAY ==
[2023-05-15] MEDS ORDERED: Ketorolac Tromethamine 60 MG/2 ML VIAL ONE (13:16)
[2023-05-15] MEDS ORDERED: Bacitracin 1 PK ONE (14:08)
== END 2023-05-15 14:15 | disposition home or self-care (01) ==
LOC: NAV ERS 12:59
DX: S67.195A Crushing injury of left ring finger, initial encounter (principal); S61.215A Laceration without foreign body of left ring finger without damage to nail, initial encounter; F17.200 Nicotine dependence, unspecified, uncomplicated; W23.0XXA Caught, crushed, jammed, or pinched between moving objects, initial encounter
CPT/HCPCS: J1885

== ENCOUNTER 2023-05-18 12:32 | Emergency (ER) | payer SELFPAY ==
[2023-05-18] MEDS ORDERED: Ketorolac Tromethamine 60 MG/2 ML VIAL ONE (13:23)
== END 2023-05-18 13:49 | disposition home or self-care (01) ==
LOC: NAV ERS 12:32
DX: S67.195A Crushing injury of left ring finger, initial encounter (principal); S60.142A Contusion of left ring finger with damage to nail, initial encounter; I10 Essential (primary) hypertension; F17.200 Nicotine dependence, unspecified, uncomplicated; W23.0XXA Caught, crushed, jammed, or pinched between moving objects, initial encounter
CPT/HCPCS: 11740; 96372; J1885

== ENCOUNTER 2023-07-20 22:13 | Emergency (ER) | payer OTHER, SELFPAY ==
[2023-07-20 23:10] LABS: #Basophils 0.1 thou/uL (0.0-0.2); #Eosinphils 0.1 thou/uL (0.0-0.7); #Lymphocytes 1.2 thou/uL (1.20-3.40); #Monocytes 0.5 thou/uL (0.11-0.59); #Neutrophils 5.6 thou/uL (1.40-6.50); %Basophils 1.1 % (0.0-1.0); %Eosinophils 1.6 % (0.0-10.0); %Lymphocytes 15.7 % (21.0-51.0); %Monocytes 6.6 % (0.0-10.0); Hematocrit 47.2 % (36.0-47.0); Hemoglobin 15.2 g/dL (12.0-16.0); Mean Corpuscular HGB CONC 32.2 g/dL (32.0-36.0); Mean Corpuscular Hemoglobin 28.8 pg (27.0-31.0); Mean Corpuscular Volume 89.4 fl (78.0-98.0); Mean Platelet Volume 5.5 fL (7.4-10.4); Platelet Count 314 10x3/uL (130-400); RBC Distribution Width 13.7 % (11.5-14.5); Red Blood Cell (RBC) Count 5.28 mill/uL (4.20-5.40); White Blood Cell (WBC) Count 7.5 10x3/uL (4.8-10.8)
[2023-07-20 23:17] LABS: Bilirubin Small (Negative); Blood, Urine Trace (Negative); Clarity Clear (Clear); Glucose, Urine (Dipstick) Negative (Negative); Ketone, Urine Trace mg/dL (Negative); Leukocyte Negative (Negative); Nitrite Negative (Negative); Protein, Urine (Dipstick) 30 mg/dL (Neg-Trace); Urobilinogen 0.2 mg/dL (Less than 2); pH, Urine 5.5 (5.0-9.0)
[2023-07-20 23:18] LABS: CAUTI Indications for Culture Alt mental st,lethar; RBC/HPF 0-3 HPF (0-3); Specific Gravity, Urine 1.028 (1.002-1.036); Squamous Epithelial 0-3 HPF (0-3); WBC/HPF 0-3 HPF (0-3)
[2023-07-20 23:19] LABS: Urine Culture Reflex No No
[2023-07-20 23:22] LABS: ALT (SGPT) 13 U/L (8-55); AST (SGOT) 20 U/L (5-34); Albumin 4.1 g/dL (3.5-5.0); Alkaline Phosphatase 104 U/L (40-110); Anion Gap 13 mmol/L (10-20); BUN (Urea Nitrogen) 25 mg/dL (9.8-20.1); Bilirubin, Total 0.3 mg/dL (0.2-1.2); Calc. Creatinine Clearance 0 mL/min (70-130); Calcium 10.4 mg/dL (7.8-10.44); Carbon Dioxide 25 mmol/L (22-29); Chloride 105 mmol/L (98-107); Estimated GFR 61; Glucose 128 mg/dL (70-105); Protein, Total 8.1 g/dL (6.0-8.3); Sodium 139 mmol/L (136-145)
[2023-07-20 23:24] LABS: Troponin I Less than 0.010 ng/mL (< 0.028)
[2023-07-20 23:26] LABS: Amphetamine Not Detected (NotDetected); Barbiturates Screen Not Detected (NotDetected); Benzodiazepine Screen Detected (NotDetected); Cocaine Metabolite Screen Detected (NotDetected); Methadone Not Detected (NotDetected); Methamphetamine Not Detected (NotDetected); Opiate Screen Not Detected (NotDetected); Oxycodone Screen Not Detected (NotDetected); Phencyclidine (PCP) Not Detected (NotDetected); THC/Cannabinoid Screen Not Detected (NotDetected); Tricyclic Screen Detected (NotDetected)
[2023-07-21] MEDS ORDERED: hydrOXYzine 25 MG TAB ONE (00:13)
== END 2023-07-21 01:10 | disposition home or self-care (01) ==
LOC: NAV ERS 22:13
DX: F43.0 Acute stress reaction (principal); F41.9 Anxiety disorder, unspecified; F14.10 Cocaine abuse, uncomplicated; I10 Essential (primary) hypertension; F17.210 Nicotine dependence, cigarettes, uncomplicated
CPT/HCPCS: 36415; 80053; 80306; 81001; 84484; 85025; 87081; 87430; 93005

== ENCOUNTER 2023-08-09 09:07 | Emergency (ER) | payer SELFPAY ==
[2023-08-09] MEDS ORDERED: methylPREDNISolone Sod Succ/PF 125 MG/2 ML VIAL ONE (10:03)
== END 2023-08-09 10:27 | disposition home or self-care (01) ==
LOC: NAV ERS 09:07
DX: M79.604 Pain in right leg (principal); M79.601 Pain in right arm; I10 Essential (primary) hypertension; F17.210 Nicotine dependence, cigarettes, uncomplicated
CPT/HCPCS: 96372; 99283; J2930

== ENCOUNTER 2023-08-10 08:47 | Emergency (ER) | payer SELFPAY | END 2023-08-10 09:35 | disposition home or self-care (01) | LOC: NAV ERS 08:47 | DX: F14.180 Cocaine abuse with cocaine-induced anxiety disorder (principal); F17.210 Nicotine dependence, cigarettes, uncomplicated; I10 Essential (primary) hypertension | CPT/HCPCS: 99283 ==

== ENCOUNTER 2024-02-23 07:38 | Emergency (ER) | payer OTHER | END 2024-02-23 08:25 | disposition home or self-care (01) | LOC: NAV ERS 07:38 | DX: T18.108A Unspecified foreign body in esophagus causing other injury, initial encounter (principal); L98.9 Disorder of the skin and subcutaneous tissue, unspecified; I10 Essential (primary) hypertension; F17.210 Nicotine dependence, cigarettes, uncomplicated; W44.9XXA Unspecified foreign body entering into or through a natural orifice, initial encounter; Z79.899 Other long term (current) drug therapy | CPT/HCPCS: 99283 ==

== ENCOUNTER 2024-05-17 06:30 | Emergency (ER) | payer OTHER ==
[2024-05-17] MEDS ORDERED: Ketorolac Tromethamine 60 MG/2 ML VIAL ONE (07:40)
[2024-05-17] MEDS ORDERED: AMOXicillin 250 MG CAP ONE (07:40)
== END 2024-05-17 08:09 | disposition home or self-care (01) ==
LOC: NAV ERS 06:30
DX: S50.01XA Contusion of right elbow, initial encounter (principal); K08.89 Other specified disorders of teeth and supporting structures; W07.XXXA Fall from chair, initial encounter
CPT/HCPCS: 96372; 99283; J1885

== ENCOUNTER 2025-05-07 11:35 | Outpatient (CLI) | payer OTHER | END 2025-05-07 11:36 | disposition home or self-care (01) | LOC: NAV RAD 11:35 | PROVIDERS: ATTEND Nurse Practitioner Family | DX: M79.601 Pain in right arm (principal); M19.011 Primary osteoarthritis, right shoulder ==

== ENCOUNTER 2025-05-27 16:34 | Emergency (ER) | payer OTHER ==
[2025-05-27] MEDS ORDERED: Bicillin LA 1.2 MILLION UNITS/2 ML SYRINGE ONE (17:34)
[2025-05-27] MEDS ORDERED: Ibuprofen 800 MG TAB ONE (17:42)
[2025-05-27] MEDS ORDERED: Dexamethasone 10 MG/ML VIAL ONE (17:42)
== END 2025-05-27 18:07 | disposition home or self-care (01) ==
LOC: NAV ERS 16:34
DX: J03.00 Acute streptococcal tonsillitis, unspecified (principal); I10 Essential (primary) hypertension
CPT/HCPCS: 87430; J0561; J1100